=== PATIENT | female | born 1955 | race Caucasian/White ===

== ENCOUNTER 2024-03-28 16:40 | Emergency (ER) | payer OTHER ==
[~2024-03-28] VITALS: Ht 162.6 cm; Wt 68.0 kg
[2024-03-28] MEDS ORDERED: EPINEPHrine 1 MG/ML AMP ONE (16:45)
[2024-03-28 17:00] VITALS: BP 119/59; PULSE 103; RESP 18; TEMP 97.3; O2SAT 94
[2024-03-28] MEDS: FAMOTIDINE 20 MG/2 ML VIAL IVP ONE (17:01)
[2024-03-28] MEDS: diphenhydrAMINE 50 MG/ML VIAL IVP ONE (17:01)
[2024-03-28] MEDS: methylPREDNISolone SS 125 MG/2 ML VIAL IVP ONE (17:01)
[2024-03-28] MEDS: EPINEPHrine 1 MG/ML AMP IM ONE (17:03)
[2024-03-28] MEDS ORDERED: DIPH25TA53 PO (18:35)
[2024-03-28] MEDS ORDERED: FAMO-90 PO (18:35)
[2024-03-28] MEDS ORDERED: PRED20TA5 PO (18:35)
[2024-03-28] MEDS ORDERED: EPIN1KIT31 IM (18:35)
[2024-03-28 19:55] VITALS: BP 126/62; PULSE 94; RESP 17; TEMP 98; O2SAT 96
== END 2024-03-28 19:55 | disposition home or self-care (01) ==
LOC: MED 16:40
DX: T78.04XA Anaphylactic reaction due to fruits and vegetables, initial encounter (principal); Z79.899 Other long term (current) drug therapy; I10 Essential (primary) hypertension
CPT/HCPCS: 96372; 96374; 96375; 99291; J0171; J1200; J2919; J3490